=== PATIENT | male | born 1950 | race Caucasian/White ===

== ENCOUNTER 2017-09-08 10:23 | Outpatient (CLI) | payer OTHER ==
--- NOTE | 2017-09-08 11:25 | DI ---
EXAM: Three views of the left thumb. History: Left thumb pain. Findings: No acute fracture or dislocation. Moderate narrowing of the first carpal metacarpal joint with osteophytes. Mild narrowing of the first MCP joint and interphalangeal joint of the first digi t. Impression: 1. No acute osseous abnormality. 2. 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
== END 2017-09-08 10:24 | disposition home or self-care (01) ==
LOC: RAD 10:23
PROVIDERS: ATTEND Family Medicine
DX: M79.645 Pain in left finger(s) (principal)